=== PATIENT | female | born 1980 | race Hispanic/Latino ===

== ENCOUNTER 2023-09-03 14:24 | Inpatient (IN) | payer SELFPAY ==
--- OUTSIDE RECORDS SUMMARY | 2023-09-03 14:28 | XMS REPORT | Continuity of Care Document ---
:1980 Author Organization [facility] t Address [address] [place] [address] Care Team Providers Name Role Phone Barbie Rollins Primary Care Physician [phone] Sushil Caraballo Attending Clinician Unavailable Problems Condition Condition Condition Status Onset Resolution Last Treating Co mments Source Name Details Category Date Date Treatment Clinician Date Mixed Hyperlipid Problem Active Commo n hyperlipid emia, Spirit emia mixed - [facility] Gastro-eso Gastro-eso Problem Active C ommon phageal phageal Spirit reflux reflux - [facility] disease disease [facility] Type II Diabetes Problem Active Common diabetes type 2, Spirit mellitus uncontroll - CH I uncontroll ed [facility] [id number] Generalize Problem Active Com mon d anxiety Spirit disorder - [facility] [id number] Hypertrigl Problem Active Co mmon yceridemia Spirit [facility] Essential Benign Problem Active Common hypertensi essential Spi rit on HTN - [facility] Palpitatio Palpitatio Problem Active C ommon ns ns [facility] [id number] Noncomplia Problem Active Co mmon nce with Spirit dietary - [facility] restrictio [facility] [id number] Non-season Problem Active Com mon al Spirit allergic - [facility] rhinitis, St unspecifie [facility] Allergies, Adverse Reactions, Alerts Allergy Allergy Status Severity Reaction(s) Onset Inactive Treating Comm ents Source Name Type Date Date Clinician Lisinopr Propensi Active 2021-11 il - ty to 12-17 Oral adverse 00:00: reaction 00 to drug Dairy Propensi Active Products ty to 9 (Not adverse 00:00: Checked) reaction 00 to drug lisinopr lisinopr Active Unknown Commo n il [facility] Social History Social Habit Start Date Stop Date Quantity Comments Source History of Tobacco Use Co mmon [facility] Sex Assigned At Com [facility] Smoking Status Start Date Stop Date Source Never Smoker Common [facility] Medications Ordered Filled Start Stop Current Ordering Indication Dosage Frequency Signature Comments Components Source Medication Medication Date Date Medication? Clinician (SIG) Name Name Zoloft 100 Zoloft 100 No 1{table QD Zoloft 100 MG MG 8-20 t} MG 00:00: 00 Pioglitazon Pioglitazon No 1{table QD Pioglitazo e HCl 30 MG e HCl 30 MG 8-20 t} ne HCl 30 00:00: MG 00 GlipiZIDE GlipiZIDE 2019-11 No 1{table BID GlipiZIDE ER 10 MG ER 10 MG 2-14 t_with_ ER 10 MG 00:00: break st} Zoloft Zoloft Yes Sushil 1 tablet Com sun 8 Caraballo Spirit 00:00: - [facility] 00 [facility] Dose No Unknown 9-23 00:00: 00 hydrochloro No 1mg thiazide 25 9-23 mg tablet 00:00: 00 aspirin 81 No 1mg mg 9-22 tablet,nicole 00:00: yed release 00 metformin No 1mg 1,000 mg 9-22 tablet 00:00: 00 gemfibrozil No 1mg 600 mg 9-22 tablet 00:00: 00 metformin No 1mg 1,000 mg 9-21 tablet 00:00: 00 Pantoprazol Pantoprazol Yes Sushil TAKE ONE Common e Sodium e Sodium Caraballo TABLET BY S pirit MOUTH - CHI DAILY [facility] Metformin Metformin Yes Sushil 1 tablet Common HCl HCl Caraballo with meals [facility] GlipiZIDE GlipiZIDE Yes Sushil 1 tablet Common Caraballo [facility] Gemfibrozil Gemfibrozil Yes Sushil 1 tablet Common Caraballo [facility] Coreg Coreg Yes Sushil 1 tab Common Caraballo [facility] Amlodipine Amlodipine Yes Sushil TAKE ONE Common Besylate Besylate Caraballo TABLET BY S pirit MOUTH - CHI DAILY [facility] Victoza Victoza Yes Sushil as Common Caraballo directed [facility] Losartan Losartan Yes Sushil 1 tablet C ommon Potassium Potassium Caraballo Spir it [facility] Lovastatin Lovastatin Yes Sushil 1 tablet Common Caraballo with the Spirit evening - CHI meal [facility] Aspir-81 Aspir-81 Yes Sushil 1 tablet C ommon Caraballo [facility] metFORMIN metFORMIN No 1{table BID metFORMIN HCl 1000 MG HCl 1000 MG t_with_ HCl 1000 meals} MG Coreg 12.5 Coreg 12.5 No Coreg 12.5 MG MG MG Losartan Losartan No 1{table QD Losartan Potassium Potassium t} Potassium 25 MG 25 MG 25 MG metFORMIN metFORMIN No 1{table BID metFORMIN HCl 1000 MG HCl 1000 MG t_with_ HCl 1000 meals} MG Victoza 18 Victoza 18 No Victoza 18 MG/3ML MG/3ML MG/3ML Gemfibrozil Gemfibrozil No 1{table BID Gemfibrozi 600 MG 600 MG t} l 600 MG Pantoprazol Pantoprazol No Pantoprazo e Sodium 40 e Sodium 40 le Sodium 40 amLODIPine amLODIPine No QD amLODIPine Besylate 10 Besylate 10 Besylate 10 Losartan Losartan No 1{table QD Losartan Potassium Potassium t} Potassium 25 MG 25 MG 25 MG Lovastatin Lovastatin No QD Lovastatin 40 MG 40 MG 40 MG Coreg 12.5 Coreg 12.5 No BID Coreg 12.5 MG MG MG Aspir-81 81 Aspir-81 81 No 1{table QD Aspir-81 MG MG t} 81 MG Zoloft 50 Zoloft 50 No 1{table QD Zoloft 50 MG MG t} MG Pantoprazol Pantoprazol No Pantoprazo e Sodium 40 e Sodium 40 le Sodium MG MG 40 MG glipiZIDE glipiZIDE No 1{table BID glipiZIDE ER 10 MG ER 10 MG t_with_ ER [address]} Gemfibrozil Gemfibrozil No Gemfibrozi 600 MG 600 MG l 600 MG Gemfibrozil Gemfibrozil No 1{table BID Gemfibrozi 600 MG 600 MG t} l 600 MG Losartan Losartan No 1{table QD Losartan Potassium Potassium t} Potassium 25 MG 25 MG 25 MG Zoloft 50 Zoloft 50 No QD Zoloft 50 MG MG MG Pantoprazol Pantoprazol No Pantoprazo e Sodium 40 e Sodium 40 le Sodium MG MG 40 MG Lovastatin Lovastatin No QD Lovastatin 40 MG 40 MG 40 MG Coreg 12.5 Coreg 12.5 No BID Coreg 12.5 MG MG MG Amlodipine Amlodipine No QD Amlodipine Besylate 10 Besylate 10 Besylate 10 Aspir-81 81 Aspir-81 81 No 1{table QD Aspir-81 MG MG t} 81 MG Metformin Metformin No 1{table BID Metformin HCl 1000 MG HCl 1000 MG t_with_ HCl 1000 meals} MG Pantoprazol Pantoprazol No Pantoprazo e Sodium 40 e Sodium 40 le Sodium 40 Losartan Losartan No 1{table QD Losartan Potassium Potassium t} Potassium 25 MG 25 MG 25 MG Victoza 18 Victoza 18 No Victoza 18 MG/3ML MG/3ML MG/3ML Zoloft 50 Zoloft 50 No 1{table QD Zoloft 50 MG MG t} MG GlipiZIDE GlipiZIDE No 1{table BID GlipiZIDE ER 10 MG ER 10 MG t_with_ ER [address]} Aspir-81 81 Aspir-81 81 No 1{table QD Aspir-81 MG MG t} 81 MG Coreg 12.5 Coreg 12.5 No Coreg 12.5 MG MG MG Pantoprazol Pantoprazol No Pantoprazo e Sodium 40 e Sodium 40 le Sodium MG MG 40 MG Lovastatin Lovastatin No QD Lovastatin 40 MG 40 MG 40 MG Zoloft 50 Zoloft 50 No 1{table QD Zoloft 50 MG MG t} MG Losartan Losartan No 1{table QD Losartan Potassium Potassium t} Potassium 25 MG 25 MG 25 MG Metformin Metformin No 1{table BID Metformin HCl 1000 MG HCl 1000 MG t_with_ HCl 1000 meals} MG Zoloft 50 Zoloft 50 No QD Zoloft 50 MG MG MG Gemfibrozil Gemfibrozil No Gemfibrozi 600 MG 600 MG l 600 MG Gemfibrozil Gemfibrozil No 1{table BID Gemfibrozi 600 MG 600 MG t} l 600 MG Losartan Losartan No 1{table QD Losartan Potassium Potassium t} Potassium 25 MG 25 MG 25 MG Coreg 12.5 Coreg 12.5 No BID Coreg 12.5 MG MG MG Metformin Metformin No 1{table BID Metformin HCl 1000 MG HCl 1000 MG t_with_ HCl 1000 meals} MG Victoza 18 Victoza 18 No Victoza 18 MG/3ML MG/3ML MG/3ML Amlodipine Amlodipine No QD Amlodipine Besylate 10 Besylate 10 Besylate 10 Pantoprazol Pantoprazol No Pantoprazo e Sodium 40 e Sodium 40 le Sodium 40 Vital Signs Vital Name Observation Time Observation Value Comments Source height 2021-07-08 09:00:00 60 [in_i] [facility] weight 2021-07-08 09:00:00 189 [lb_av] [facility] temperature 2021-07-08 09:00:00 98 [degF] [facility] bmi 2021-07-08 09:00:00 36.91 kg/m2 [facility] blood pressure 2021-07-08 09:00:00 130 mm[Hg] Common Spirit - systolic [facility] blood pressure 2021-07-08 09:00:00 74 mm[Hg] Common Spirit - diastolic [facility] height 2021-02-09 13:00:00 60 [in_i] Common [facility] weight 2021-02-09 13:00:00 185 [lb_av] [facility] temperature 2021-02-09 13:00:00 97.5 [degF] [facility] bmi 2021-02-09 13:00:00 36.13 kg/m2 [facility] blood pressure 2021-02-09 13:00:00 132 mm[Hg] Common Spirit - systolic [facility] blood pressure 2021-02-09 13:00:00 70 mm[Hg] Common Spirit - diastolic [facility] height 2020-11-01 11:30:00 60 [in_i] [facility] weight 2020-11-01 11:30:00 180 [lb_av] [facility] temperature 2020-11-01 11:30:00 98 [degF] [facility] bmi 2020-11-01 11:30:00 35.15 kg/m2 [facility] S pirit - [facility] blood pressure 2020-11-01 11:30:00 135 mm[Hg] Common Spirit - systolic [facility] blood pressure 2020-11-01 11:30:00 74 mm[Hg] Common Spirit - diastolic [facility] Heart Rate 2022-10-19 18:01:00 115.00 /min Respiratory Rate 2022-10-19 18:01:00 BP Systolic 2022-10-19 18:01:00 157 mm[Hg] BP Diastolic 2022-10-19 18:01:00 98 mm[Hg] Weight Measured 2022-10-19 18:01:00 156.00 pounds Height Measured 2022-10-19 18:01:00 58.00 inches Body Temperature 2022-10-19 18:01:00 98.63 degrees BP Systolic 2022-10-19 17:42:00 157 mm[Hg] BP Diastolic 2022-10-19 17:42:00 98 mm[Hg] Weight Measured 2022-10-19 17:42:00 156.00 pounds Height Measured 2022-10-19 17:42:00 58.00 inches Body Temperature 2022-10-19 17:42:00 98.63 degrees Heart Rate 2022-10-19 17:42:00 115.00 /min Respiratory Rate 2022-10-19 17:42:00 BP Systolic 2016-09-19 14:54:00 121 mm[Hg] BP Diastolic 2016-09-19 14:54:00 81 mm[Hg] Weight Measured 2016-09-19 14:54:00 166.80 pounds Height Measured 2016-09-19 14:54:00 58.00 inches Body Temperature 2016-09-19 14:54:00 98.30 degrees Heart Rate 2016-09-19 14:54:00 99.00 /min Respiratory Rate 2016-09-19 14:54:00 BP Systolic 2016-08-10 10:11:00 146 mm[Hg] BP Diastolic 2016-08-10 10:11:00 94 mm[Hg] Weight Measured 2016-08-10 10:11:00 166.40 pounds Height Measured 2016-08-10 10:11:00 58.00 inches Body Temperature 2016-08-10 10:11:00 97.70 degrees Heart Rate 2016-08-10 10:11:00 98.00 /min Respiratory Rate 2016-08-10 10:11:00 18.00 /min Procedures This patient has no known procedures. Plan of Care Planned Activity Planned Date Details Comments Source Goal Plan of Care Note [code = 71748-3] Goal Plan of Care Note [code = 02798-7] Goal Plan of Care Note [code = 87200-9] Goal Plan of Care Note [code = 16984-3] Goal Plan of Care Note [code = 37513-6] Goal Plan of Care Note [code = 04996-4] Goal Plan of Care Note [code = 28748-6] Goal Plan of Care Note [code = 58922-8] Goal Plan of Care Note [code = 50873-7] Encounters Start End Encounter Admission Attending Care Care Encounter Source Date/Time Date/Time Type Type Clinicians Facility Department ID 2022-05-31 Outpatient Caraballo, STLMLC [facility] [id number] Common 13:04:00 Sushil [facility] 2021-12-14 Outpatient Caraballo, STLMLC [facility] [id number] Common 12:43:24 Sushil 26416 [facility] 2021-12-14 [facility] [id number] Common 12:13:00 Sushil [id number] [facility] 2021-12-14 [facility] [id number] Common 12:12:49 Sushil 53214 [facility] 2021-12-14 [facility] [id number] Common 12:10:48 Sushil [id number] [facility] 2021-12-14 Outpatient Caraballo, STLMLC STLC [id number] Common 12:06:47 Sushil 72780 [facility] 2021-12-14 Outpatient Caraballo, STLMLC STLMLC Common 11:44:19 Sushil 95430 [facility] 2021-12-14 Outpatient Caraballo, STLMLC STLMLC Common 11:35:26 [facility] [address] [facility] 2023-08-22 2023-08-22 Outpatient SFA SFA [id number] Qamar 09:22:37 09:22:37 1004 [facility] 2023-08-15 2023-08-15 Outpatient SFA SFA [id number] Qamar 10:39:15 10:39:15 0927 [facility] 2022-10-20 2022-10-20 Outpatient SFA SFA [id number] Qamar 07:57:32 07:57:32 1202 [facility] 2022-10-19 2022-10-19 Outpatient SFA SFA [id number] Qamar 17:38:07 17:38:07 1201 [facility] 2022-10-19 2022-10-19 Outpatient [id number] 00:00:00 00:00:00 Visit [id number] [id number] 2021-07-08 OFFICE STLMLC STLMLC [id number] Co mmon 00:00:00 00:00:00 VISIT EST Spir it PT LEVEL 3 [facility] 2021-02-09 2021-02-09 OFFICE STLMLC STLMLC [id number] Co mmon 00:00:00 00:00:00 VISIT EST Spir it PT LEVEL 3 [facility] 2020-11-01 2020-11-01 OFFICE STLMLC STLMLC [id number] Co mmon 00:00:00 00:00:00 VISIT EST Spir it PT LEVEL 3 [facility] 2020-07-29 2020-07-29 [id number] Common 08:40:00 08:40:[address] [facility] 2020-06-28 2020-06-28 [facility] [id number] Common 15:45:00 15:45:[address] Drive [facility] 2020-04-27 2020-04-27 [facility] [id number] Common 09:45:00 09:45:[address] Drive [facility] 2020-04-16 2020-04-16 [facility] [id number] Common 16:39:00 16:39:[address] [facility] [address] Spir it Road [facility] 2019-12-15 2019-12-15 [facility] [id number] Common 10:00:00 10:00:[address] Drive [facility] 2019-11-21 2019-11-21 [facility] [id number] Common 09:14:00 09:14:[address] [facility] 2019-09-09 2019-09-09 [facility] [id number] Common 10:30:00 10:30:[address] [facility] 2019-06-09 2019-06-09 [facility] [id number] Common 15:00:00 15:00:[address] Drive [facility] 2019-02-26 2019-02-26 [facility] [id number] Common 15:14:00 15:14:[address] Drive [facility] 2019-02-26 2019-02-26 [facility] [id number] Common 11:30:00 11:30:[address] [facility] 2018-12-20 2018-12-20 [facility] [id number] Common 13:05:00 13:05:[address] Drive [facility] 2018-12-05 2018-12-05 [facility] [id number] Common 14:06:00 14:06:[address] Drive [facility] 2018-11-26 2018-11-26 [facility] [id number] Common 12:02:00 12:02:[address] Drive [facility] 2018-11-25 2018-11-25 [facility] [id number] Common 13:45:00 13:45:[address] Drive [facility] 2018-08-22 2018-08-22 [facility] [id number] Common 14:45:00 14:45:[address] Drive [facility] 2018-04-22 2018-04-22 [facility] [id number] Common 16:00:00 16:00:[address] Sp[address] Drive [facility] Results Test Description Test Time Test Comments Results Result Comments Source GC AND CHLAMYDIA AMPLIFIED, THINPREP 2016-09-22 00:00:00 Test Item Value Reference Range Interpretation Comme nts GONORRHEA, TMA (test code = 16038) NEGATIVE CHLAMYDIA, TMA (test code = 81195) NEGATIVE GC AND CHLAMYDIA AMPLIFIED, [id number] 00:00:00 Test Item Value Reference Range Interpretation Comments GONORRHEA, TMA (test code = 87333) NEGATIVE CHLAMYDIA, TMA (test code = 83033) NEGATIVE PAP TEST, THINPREP, [id number] 00:00:00 Test Item Value Reference Range Interpretation Comments SOURCE: (test code = Cervical/Endocervical 8001) SLIDES: (test code = 1 8011) LMP: (test code = 08/25/2016 8021) SPECIMEN ADEQUACY: (NOTE) (test code = 95259) INTERPRETATION: (test NO EPITHELIAL code = 20780) ABNORMALITY SEE BELOW [employer]BLER: MARGARITA ACEVEDO(ASCP) (test code = 8101) LOCATION: (test code (NOTE) = 90626) CPT: (test code = (NOTE) 8140) PAP TEST, THINPREP, [id number] 00:00:00 Test Item Value Reference Range Interpretation Comments SOURCE: (test code = Cervical/Endocervical 8001) SLIDES: (test code = 1 8011) LMP: (test code = 08/25/2016 8021) SPECIMEN ADEQUACY: (NOTE) (test code = 37700) INTERPRETATION: (test NO EPITHELIAL code = 47210) ABNORMALITY SEE BELOW [employer] ASSEMBLER: MARGARITA ACEVEDO(ASCP) (test code = 8101) LOCATION: (test code (NOTE) = 20680) CPT: (test code = (NOTE) 8140) HPV HIGH RISK WITH GENOTYPE, [id number] 00:00:00 Test Item Value Reference Range Interpretation Comments HPV HIGH RISK INTERP (test code = NEGATIVE 53899) HPV 16 (test code = 21450) NEGATIVE HPV 18 (test code = 09980) NEGATIVE HPV, HR, OTHER GENOTYPES (test code NEGATIVE = 90708) HPV HIGH RISK WITH GENOTYPE, [id number] 00:00:00 Test Item Value Reference Range Interpretation Comments HPV HIGH RISK INTERP (test code = NEGATIVE 07525) HPV 16 (test code = 21225) NEGATIVE HPV 18 (test code = 70709) NEGATIVE HPV, HR, OTHER GENOTYPES (test code NEGATIVE = 12234) COMPREHENSIVE METABOLIC [id number] 00:00:00 Test Item Value Reference Range Interpretation Comments GLUCOSE (test code = 2217) 337 MG/DL BUN (test code = 2208) 9 MG/DL CREATININE (test code = 2214) 0.45 MG/DL eGFR AMER. (test code 147 ML/MIN/1.73 = 40636) eGFR NON- AMER. (test 127 ML/MIN/1.73 code = 02176) CALC BUN/CREAT (test code = 20 RATIO 5) SODIUM (test code = 2231) 135 MEQ/L POTASSIUM (test code = 2228) 4.4 MEQ/L CHLORIDE (test code = 2215) 97 MEQ/L CARBON DIOXIDE (test code = 24 MEQ/L 2205) CALCIUM (test code = 2209) 9.5 MG/DL PROTEIN, TOTAL (test code = 7.0 G/DL 2228) ALBUMIN (test code = 2201) 4.5 G/DL CALC GLOBULIN (test code = 2.5 G/DL 2240) CALC A/G RATIO (test code = 1.8 RATIO 2234) BILIRUBIN, TOTAL (test code = 0.2 MG/DL 2206) ALKALINE PHOSPHATASE (test 113 U/L code = 2204) AST (test code = 2218) 23 U/L ALT (test code = 2219) 36 U/L COMPREHENSIVE METABOLIC [id number] 00:00:00 Test Item Value Reference Range Interpretation Comments GLUCOSE (test code = 2217) 337 MG/DL BUN (test code = 2208) 9 MG/DL CREATININE (test code = 2214) 0.45 MG/DL eGFR AMER. (test code 147 ML/MIN/1.73 = 43214) eGFR NON- AMER. (test 127 ML/MIN/1.73 code = 51995) CALC BUN/CREAT (test code = 20 RATIO 2235) SODIUM (test code = 2231) 135 MEQ/L POTASSIUM (test code = 2228) 4.4 MEQ/L CHLORIDE (test code = 2215) 97 MEQ/L CARBON DIOXIDE (test code = 24 MEQ/L 2205) CALCIUM (test code = 2209) 9.5 MG/DL PROTEIN, TOTAL (test code = 7.0 G/DL 2228) ALBUMIN (test code = 2201) 4.5 G/DL CALC GLOBULIN (test code = 2.5 G/DL 2240) CALC A/G RATIO (test code = 1.8 RATIO 2234) BILIRUBIN, TOTAL (test code = 0.2 MG/DL 2206) ALKALINE PHOSPHATASE (test 113 U/L code = 2204) AST (test code = 2218) 23 U/L ALT (test code = 2219) 36 U/L LIPID [id number] 00:00:00 Test Item Value Reference Range Interpretation Comments CHOLESTEROL (test code = 2210) 283 MG/DL TRIGLYCERIDES (test code = 2232) 1650 MG/DL HDL CHOLESTEROL (test code = 2220) 31 MG/DL CALC LDL CHOL (test code = 2237) NOTE MG/DL LIPID [id number] 00:00:00 Test Item Value Reference Range Interpretation Comments CHOLESTEROL (test code = 2210) 283 MG/DL TRIGLYCERIDES (test code = 2232) 1650 MG/DL HDL CHOLESTEROL (test code = 2220) 31 MG/DL CALC LDL CHOL (test code = 2237) NOTE MG/DL CBC W/AUTO [id number] 00:00:00 Test Item Value Reference Range Interpretation Comments WBC (test code = 1001) 7.3 K/UL RBC (test code = 1002) 4.85 M/UL HEMOGLOBIN (test code = 1003) 13.3 G/DL HEMATOCRIT (test code = 1004) 40.0 % MCV (test code = 1005) 82.5 fL MCH (test code = 1006) 27.4 PG MCHC (test code = 1007) 33.3 G/DL RDW (test code = 1038) 13.0 % NEUTROPHILS (test code = 1008) 59.9 % LYMPHOCYTES (test code = 1010) 30.4 % MONOCYTES (test code = 1011) 8.2 % EOSINOPHILS (test code = 1012) 0.8 % BASOPHILS (test code = 1013) 0.7 % PLATELET COUNT (test code = 1015) 315 K/UL CBC W/AUTO [id number] 00:00:00 Test Item Value Reference Range Interpretation Comments WBC (test code = 1001) 7.3 K/UL RBC (test code = 1002) 4.85 M/UL HEMOGLOBIN (test code = 1003) 13.3 G/DL HEMATOCRIT (test code = 1004) 40.0 % MCV (test code = 1005) 82.5 fL MCH (test code = 1006) 27.4 PG MCHC (test code = 1007) 33.3 G/DL RDW (test code = 1038) 13.0 % NEUTROPHILS (test code = 1008) 59.9 % LYMPHOCYTES (test code = 1010) 30.4 % MONOCYTES (test code = 1011) 8.2 % EOSINOPHILS (test code = 1012) 0.8 % BASOPHILS (test code = 1013) 0.7 % PLATELET COUNT (test code = 1015) 315 K/UL CBC W/AUTO [id number] 00:00:00 Test Item Value Reference Range Interpretation Comments WBC (test code = 1001) 7.3 K/UL RBC (test code = 1002) 4.85 M/UL HEMOGLOBIN (test code = 1003) 13.3 G/DL HEMATOCRIT (test code = 1004) 40.0 % MCV (test code = 1005) 82.5 fL MCH (test code = 1006) 27.4 PG MCHC (test code = 1007) 33.3 G/DL RDW (test code = 1038) 13.0 % NEUTROPHILS (test code = 1008) 59.9 % LYMPHOCYTES (test code = 1010) 30.4 % MONOCYTES (test code = 1011) 8.2 % EOSINOPHILS (test code = 1012) 0.8 % BASOPHILS (test code = 1013) 0.7 % PLATELET COUNT (test code = 1015) 315 K/UL HEMOGLOBIN [id number] 00:00:00 Test Item Value Reference Range Interpretation Comments HEMOGLOBIN A1c (test code = 74700) 10.7 % HEMOGLOBIN [id number] 00:00:00 Test Item Value Reference Range Interpretation Comments HEMOGLOBIN A1c (test code = 91503) 10.7 % HEMOGLOBIN [id number] 00:00:00 Test Item Value Reference Range Interpretation Comments HEMOGLOBIN A1c (test code = 29243) 10.7 % [id number] 00:00:00 Test Item Value Reference Range Interpretation Comments TSH (test code = 2821) 1.4 UIU/ML [id number] 00:00:00 Test Item Value Reference Range Interpretation Comments TSH (test code = 2821) 1.4 UIU/ML [id number] 00:00:00 Test Item Value Reference Range Interpretation Comments TSH (test code = 2821) 1.4 UIU/ML
--- NOTE | 2023-09-03 14:54 | RAD REPORT ---
EXAM DESCRIPTION: CT - Ct Stroke Brain Wo Cont - 09/03/2023 2:44 pm CLINICAL HISTORY: STROKE ALERT Headache, drowsiness, CVA COMPARISON: HEAD BRAIN W O CONTRAST dated 06/09/2014; SOFT TISSUE NECK W CONTRAST dated 05/10/2015 TECHNIQUE: All CT scans are performed using dose optimization technique as appropriate and may inclu de automated exposure control or mA/KV adjustment according to patient size. FINDINGS: No intracranial hemorrhage, hydrocephalus or extra-axial fluid collection.Mild areas of di minished density periventricular region bilaterally favored to represent sequela of prior ischemic in sult.No areas of brain edema or evidence of midline shift. The paranasal sinuses and mastoids are clear. The calvarium is intact. IMPRESSION: No acute intracranial abnormality. The findings were discussed with Inessa Duran in the ER on 09/03/2023 at 2:50 p.m. by telephone.
[2023-09-03] MEDS ORDERED: ASPIRIN 81 MG CHEWABLE TABLET ONE (15:12)
[2023-09-03 15:38] LABS: Absolute Lymphocytes (CBC) 1.9 K/uL (0.7-4.9); Hematocrit 37.9 % (36.0-45.0); Lymphocytes % 20.2 % (15.3-44.8); MCV 81.8 fL (80-100); MPV 7.2 fL (7.6-11.3); Platelets 343 thou/uL (152-406); RBC Red Blood Cell Count 4.64 M/uL (3.86-4.86)
[2023-09-03 15:40] LABS: Protime INR 0.91
--- NOTE | 2023-09-03 15:50 | RAD REPORT ---
EXAM DESCRIPTION: MRI - Brain Wo Cont - 09/03/2023 3:29 pm CLINICAL HISTORY: SLURRED SPEECH Headache, drowsiness, CVA symptomology COMPARISON: Ct Stroke Brain Wo Cont dated 09/03/2023 TECHNIQUE: Multi-sequence, multiplanar MR imaging of the brain was performed without contrast. FINDINGS: No intracranial hemorrhage, hydrocephalus or extra-axial fluid collections. No edema or sh ift of midline structures. No findings to suspect brain mass.T2 and FLAIR hyperintense lesions are se en in the periventricular white matter bilaterally, larger on the right. The right-sided ovoid lesion measures 16 x 9 mm and appears perpendicular to the long axis of the ventricle and involves the prec entral gyrus. This lesion demonstrates significant elevated DWI signal and reduced ADC map signal com patible with acute ischemia/CVA. Smaller similar lesion left periventricular white matter measures 8 mm and demonstrates elevated DWI signal without ADC map correlate. Small area of T2 hyperintensity is seen superior left cerebellar peduncle measuring 11 mm. Midline structures are normally formed. Mastoid air cells and paranasal sinuses are clear. IMPRESSION: Suspected nonhemorrhagic acute CVA seen right medial prefrontal gyrus measuring 16 x 9 m m. Additional areas of signal abnormality described above may represent subacute to chronic areas ischem ia.
[2023-09-03 15:56] LABS: Potassium 3.9 mEq/L (3.5-5.1)
[2023-09-03 16:00] LABS: Troponin High Sensitivity 87.3 pg/mL (<58.9)
--- NOTE | 2023-09-03 16:22 | RAD REPORT ---
EXAM DESCRIPTION: RAD - Chest Single View - 09/03/2023 4:07 pm CLINICAL HISTORY: slurred speech Chest pain. COMPARISON: Chest Single View dated 11/14/2017; Chest Single View dated 02/24/2017; Chest Single View dated 02/05/2017; Chest Single View dated 01/28/2017 FINDINGS: Portable technique limits examination quality. The lungs are grossly clear. The heart is normal in size. No displaced fractures. IMPRESSION: No acute intrathoracic process suspected.
--- NOTE | 2023-09-03 16:39 | RAD REPORT ---
EXAM DESCRIPTION: CT - Head angio - 09/03/2023 4:30 pm CLINICAL HISTORY: SLURRED SPEECH Headache, drowsiness, CVA COMPARISON: Ct Stroke Brain Wo Cont dated 09/03/2023; HEAD BRAIN W O CONTRAST dated 06/09/2014 TECHNIQUE: CT angiography of the head was performed with MIPs. All CT scans are performed using dose optimization technique as appropriate and may include automated exposure control or mA/KV adjustment according to patient size. FINDINGS: No evidence of large vessel occlusion. No evidence of aneurysm is detected. No flow-limiti ng stenosis or vascular malformation identified. Antegrade flow is seen in the vertebral arteries. The vertebral arteries are codominant. The visualized dural venous sinuses are patent. IMPRESSION: No significant flow abnormality is detected.
--- NOTE | 2023-09-03 16:41 | RAD REPORT ---
EXAM DESCRIPTION: CT - Neck Angio - 09/03/2023 4:31 pm CLINICAL HISTORY: slurred speech Headache, drowsiness, CVA symptomology COMPARISON: SOFT TISSUE NECK W CONTRAST dated 05/10/2015 TECHNIQUE: CT angiography of the neck vessels was performed with MIPs. All CT scans are performed using dose optimization technique as appropriate and may include automated exposure control or mA/KV adjustment according to patient size. FINDINGS: A left aortic arch is identified with normal three vessel configuration of the great vesse ls. No significant flow abnormality is seen of the common carotid bilaterally. No significant stenosis is identified involving the cervical segments of both internal carotid arteri es. Normal flow is seen within both vertebral arteries. IMPRESSION: No significant flow abnormality of the neck vessels is identified. NASCET criteria used. Mild 0-49% stenosis Moderate 50-69% stenosis Severe 70-99% stenosis
--- NOTE | 2023-09-03 16:48 | ER ---
Nurse's Notes [facility] Name: Sakshi Jarvis Age: 43 yrs Sex: Female : 1980 Arrival Date: 09/03/2023 Time: 14:24 Bed 8 Private MD: Diagnosis: Acute CVA Presentation: 09/03 14:34 Chief complaint: Patient states: Yesterday at approximately 0800, I had some slurred kd3 speech. I thought I had just bitten my tongue but it isn't going away. My tongue still feels swollen today. Pt is noted to have no other deficits in triage. Pt is equal in strength bilaterally. Pt is alert and oriented, denies a headache. Coronavirus screen: Vaccine status: Patient reports receiving the 2nd dose of the covid vaccine. Ebola Screen: No symptoms or risks identified at this time. 14:34 Method Of Arrival: Ambulatory kd3 14:37 Initial Sepsis Screen: Does the patient meet any 2 criteria? No. Patient's initial kd3 sepsis screen is negative. Does the patient have a suspected source of infection? No. Patient's initial sepsis screen is negative. Risk Assessment: Do you want to hurt yourself or someone else? Patient reports no desire to harm self or others. Onset of symptoms was September 03, 2023. 14:37 Acuity: VAISHALI 3 kd3 Triage Assessment: 14:37 General: Appears uncomfortable, Behavior is anxious, crying. Pain: Complains of pain in kd3 tongue. 14:37 Neuro: Level of Consciousness is awake, alert, obeys commands, Oriented to person, kd3 place, time, situation. Cardiovascular: Pulses are palpable in right radial artery and left radial artery. Respiratory: Airway is patent Trachea midline Respiratory effort is even, unlabored, Respiratory pattern is regular, symmetrical. Historical: - Allergies: 14:37 Lisinopril; kd3 14:37 PENICILLINS; kd3 - Immunization history:: Adult Immunizations up to date. - Social history:: Smoking status: unknown. Screenin:11 [facility] ED Fall Risk Assessment (Adult) Score/Fall Risk Level 0 - 2 = Low Risk hb Oriented to surroundings, Maintained a safe environment. Abuse screen: Denies threats or abuse. Denies injuries from another. Nutritional screening: No deficits noted. Tuberculosis screening: No symptoms or risk factors identified. 15:50 [place] Swallow Protocol Exclusion Criteria: Exclusion Criteria Result: Proceed Brief hb Cognitive Screen What is your name? Normal, Where are you right now? Normal, What year is it? Normal. Oral Mechanism Examination Facial Symmetry: Normal, Motion: Normal, Lip Closure: Normal, Oral Mechanism Result: Normal. 3 oz Water Swallow Challenge: Pt able to drink all water without stopping, coughing, choking or throat clearing: Yes Result: PASS. Assessment: 15:11 General: Appears in no apparent distress. Behavior is calm, cooperative. Pain: Denies hb pain. Neuro: Level of Consciousness is awake, alert, obeys commands, Oriented to person, place, time, situation, Speech is slurred, Facial droop on left. Cardiovascular: Patient's skin is warm and dry. Respiratory: Respiratory effort is even, unlabored, Respiratory pattern is regular, symmetrical. GI: No signs and/or symptoms were reported involving the gastrointestinal system. : No signs and/or symptoms were reported regarding the genitourinary system. EENT: No signs and/or symptoms were reported regarding the EENT system. Derm: Skin is pink, warm \T\ dry. Musculoskeletal: No signs and/or symptoms reported regarding the musculoskeletal system. 19:10 Reassessment: Patient appears in no apparent distress at this time. Patient and/or jb4 family updated on plan of care and expected duration. Pain level reassessed. Patient is alert, oriented x 3, equal unlabored respirations, skin warm/dry/pink. 19:54 Reassessment: attempted to call report, no answer. jb4 20:26 Reassessment: Patient appears in no apparent distress at this time. Patient and/or jb4 family updated on plan of care and expected duration. Pain level reassessed. Patient is alert, oriented x 3, equal unlabored respirations, skin warm/dry/pink. Vital Signs: 14:34 BP 158 / 93; Pulse 103; Resp 18; Temp 98.2(TE); Pulse Ox 100% on R/A; Weight 71.67 kg; kd3 Height 5 ft. 5 in. ; 15:53 BP 145 / 86; Pulse 97; Resp 18; Pulse Ox 98% on R/A; ld1 16:30 BP 158 / 88; Pulse 101; Resp 18; Pulse Ox 98% on R/A; ld1 17:00 BP 154 / 100; Pulse 98; Resp 16; Pulse Ox 100% on R/A; ld1 17:30 BP 167 / 91; Pulse 97; Resp 20; Pulse Ox 100% on R/A; ld1 18:00 BP 171 / 95; Pulse 98; Resp 14; Pulse Ox 100% on R/A; ld1 18:38 BP 146 / 89; Pulse 94; Resp 19; Pulse Ox 97% on R/A; ld1 19:10 BP 142 / 97; Pulse 97; Resp 16; Pulse Ox 99% on R/A; jb4 20:30 BP 145 / 92; Pulse 96; Resp 20; Pulse Ox 99% on R/A; jb4 14:34 Body Mass Index 26.29 (71.67 kg, 165.1 cm) kd3 NIH Stroke Scale Scores: 15:11 NIHSS Score: 2 hb 16:03 NIHSS Score: 1 kb ED Course: 14:25 Patient arrived in ED. rg4 14:30 Inessa Duran FNP-C [facility]. kb 14:30 Tevin Otto DO is Attending Physician. kb 14:34 Terra Johnson, [place] is Primary Nurse. kd3 14:37 Triage completed. kd3 14:37 Arm band placed on right wrist. kd3 14:46 CT Stroke Brain w/o Contrast In Process Unspecified. EDMS 15:09 Inserted saline lock: 20 gauge in right antecubital area, using aseptic technique. hb Blood collected. 15:10 Basic Metabolic Panel Sent. hb 15:10 CBC with Diff Sent. hb 15:10 High Sensitivity Troponin Sent. hb 15:10 Protime (+inr) Sent. hb 15:10 Ptt, Activated Sent. hb 15:31 MRI - Brain Wo Cont In Process Unspecified. EDMS 16:09 Stroke CXR 1 View In Process Unspecified. EDMS 16:32 CT Head Angio In Process Unspecified. EDMS 16:33 CT Neck Angio In Process Unspecified. EDMS 16:47 Asad Pinzon MD is Hospitalizing Provider. kb 20:31 No provider procedures requiring assistance completed. Patient admitted, IV remains in jb4 place. Administered Medications: 15:10 Drug: Aspirin PO 325 mg PO once Route: PO; hb 16:07 Follow up: Response: No adverse reaction hb 17:05 Drug: Clopidogrel PO 300 mg PO once Route: PO; ld1 Outcome: 16:48 Decision to Hospitalize by Provider. kb 20:31 Admitted to Tele accompanied by tech, via wheelchair, room 406, with chart, jb4 20:31 Condition: stable 20:31 Discharge instructions given to patient, Instructed on the need for admit, Demonstrated understanding of instructions, 20:32 Patient left the ED. jb4 NIH Stroke Scale - NIH Stroke Score Date: 09/03/2023 Time: 15:11 Total Score = 2 10. Dysarthria (speech clarity - read or repeat words) - 1(Mild to Moderate) 11. Extinction and Inattention (visual/tactile/auditory/spatial/personal) - 0(No abnormality) 1a. Level of Consciousness (LOC) - 0(Alert) 1b. Level of Consciousness (LOC) (Month \T\ Age) - 0(Both) 1c. LOC Commands (Open \T\ Closes Eyes/Bobtailer) - 0(Both) 2. Best Gaze (Lateral Gaze Paresis) - 0(Normal) 3. Visual Field Loss - 0(No visual loss) 4. Facial Palsy - 1(Minor Paralysis) 5a. Left Arm: Motor (10-second hold) - 0(No drift) 5b. Right Arm: Motor (10-second hold) - 0(No drift) 6a. Left Leg: Motor (5-second hold - always test supine) - 0(No drift) 6b. Right Leg: Motor (5-second hold - always test supine) - 0(No drift) 7. Limb Ataxia (finger/nose \T\ heel/rascon - test with eyes open) - 0(Absent) 8. Sensory Loss (pinprick arms/legs/face) - 0(Normal) 9. Best Language: Aphasia (description/naming/reading) - 0(No aphasia) Initials: NIH Stroke Scale - NIH Stroke Score Date: 09/03/2023 Time: 16:03 Total Score = 1 10. Dysarthria (speech clarity - read or repeat words) - 0(Normal) 11. Extinction and Inattention (visual/tactile/auditory/spatial/personal) - 0(No abnormality) 1a. Level of Consciousness (LOC) - 0(Alert) 1b. Level of Consciousness (LOC) (Month \T\ Age) - 0(Both) 1c. LOC Commands (Open \T\ Closes Eyes/Bobtailer) - 0(Both) 2. Best Gaze (Lateral Gaze Paresis) - 0(Normal) 3. Visual Field Loss - 0(No visual loss) 4. Facial Palsy - 1(Minor Paralysis) 5a. Left Arm: Motor (10-second hold) - 0(No drift) 5b. Right Arm: Motor (10-second hold) - 0(No drift) 6a. Left Leg: Motor (5-second hold - always test supine) - 0(No drift) 6b. Right Leg: Motor (5-second hold - always test supine) - 0(No drift) 7. Limb Ataxia (finger/nose \T\ heel/rascon - test with eyes open) - 0(Absent) 8. Sensory Loss (pinprick arms/legs/face) - 0(Normal) 9. Best Language: Aphasia (description/naming/reading) - 0(No aphasia) Initials: kb Signatures: Dispatcher [employer] EDMS Inessa Duran, [employer]-C [employer]-Ckb Maxine Miller, RN RN Mayelin Herrera4 Sergio Hurd RN RN jb4 Jazz Otto, RN RN ld1 Terra Johnson RN RN kd3
--- NOTE | 2023-09-03 16:49 | EDPHYS ---
Physician Documentation [facility] Name: Sakshi Jarvis Age: 43 yrs Sex: Female : 1980 Arrival Date: 09/03/2023 Time: 14:24 Bed 8 Private MD: ED Physician Tevin Otto HPI: 09/03 16:31 This 43 yrs old Female presents to ER via Ambulatory with complaints of kb Slurred Speech. 16:31 The patient presents to the emergency department with a speech or higher order brain kb function problem. Onset: The symptoms/episode began/occurred yesterday, at 08:00. Context: occurred at home. Associated signs and symptoms: Pertinent positives: slurred speech, facial droop. Severity of symptoms: At their worst the symptoms were mild in the emergency department the symptoms are unchanged. Patient's baseline: Neuro: alert and fully oriented, Motor: no deficits, Ambulation: walks without assistance, Speech: normal. Current symptoms:. The patient has not experienced similar symptoms in the past. The patient has not recently seen a physician. Historical: - Allergies: 14:37 Lisinopril; kd3 14:37 PENICILLINS; kd3 - Immunization history:: Adult Immunizations up to date. - Social history:: Smoking status: unknown. ROS: 16:30 Constitutional: Negative for fever, chills, and weight loss, kb 16:30 Neuro: Positive for speech changes, 16:30 All other systems are negative, Exam: 16:30 Constitutional: This is a well developed, well nourished patient who is awake, alert, kb and in no acute distress. Head/Face: Normocephalic, atraumatic. ENT: Moist Mucous membranes Cardiovascular: Regular rate Respiratory: Respirations even and unlabored. No increased work of breathing. Talking in full sentences Abdomen/GI: Soft, non-tender. No distention Skin: Warm, dry with normal turgor. Normal color. MS/ Extremity: Pulses equal, no cyanosis. Neurovascular intact. Full, normal range of motion. 16:30 ECG was reviewed by the Attending Physician. 16:30 Neuro: Orientation: is normal, Mentation: is normal, Memory: is normal, Cranial nerves: facial droop noted on left, with forehead spared. Speech is clear and appropriate. Vital Signs: 14:34 BP 158 / 93; Pulse 103; Resp 18; Temp 98.2(TE); Pulse Ox 100% on R/A; Weight 71.67 kg; kd3 Height 5 ft. 5 in. ; 15:53 BP 145 / 86; Pulse 97; Resp 18; Pulse Ox 98% on R/A; ld1 16:30 BP 158 / 88; Pulse 101; Resp 18; Pulse Ox 98% on R/A; ld1 17:00 BP 154 / 100; Pulse 98; Resp 16; Pulse Ox 100% on R/A; ld1 17:30 BP 167 / 91; Pulse 97; Resp 20; Pulse Ox 100% on R/A; ld1 18:00 BP 171 / 95; Pulse 98; Resp 14; Pulse Ox 100% on R/A; ld1 18:38 BP 146 / 89; Pulse 94; Resp 19; Pulse Ox 97% on R/A; ld1 19:10 BP 142 / 97; Pulse 97; Resp 16; Pulse Ox 99% on R/A; jb4 20:30 BP 145 / 92; Pulse 96; Resp 20; Pulse Ox 99% on R/A; jb4 14:34 Body Mass Index 26.29 (71.67 kg, 165.1 cm) kd3 NIH Stroke Scale Scores: 15:11 NIHSS Score: 2 hb 16:03 NIHSS Score: 1 kb MDM: 14:30 Patient medically screened. kb 16:02 Data reviewed: vital signs, nurses notes. Consideration of Admission/Observation kb Patient was admitted/placed on observation. Escalation of care including admission/observation considered. Management of patient was discussed with the following: Policy Intern: Dr Connelly. . Discussion of test interpretation with radiology: I had a discussion with radiology regarding a test interpretation. Discussed CT results with Dr Beltre. 16:31 Counseling: I had a detailed discussion with the patient and/or guardian regarding the kb historical points, exam findings, and any diagnostic results supporting the discharge/admit diagnosis, lab results, radiology results, the need for further work-up and treatment in the hospital. 16:48 Management of patient was discussed with the following: Hospitalist: Hospitalist team, hudson pt accepted for admission under Dr Pinzon. 09/03 14:35 Order name: Basic Metabolic Panel; Complete Time: 16:00 hudson 09/03 14:35 Order name: CBC with Diff; Complete Time: 15:49 kb 09/03 14:35 Order name: High Sensitivity Troponin; Complete Time: 16:00 kb 09/03 14:35 Order name: Protime (+inr); Complete Time: 15:43 kb 09/03 14:35 Order name: Ptt, Activated; Complete Time: 15:43 kb 09/03 18:18 Order name: RPR EDMS 09/03 18:24 Order name: CBC with Automated Diff; Complete Time: 18:29 EDMS 09/03 18:35 Order name: Basic Metabolic Panel EDMS 09/03 18:40 Order name: Protime (+INR); Complete Time: 18:56 EDMS 09/03 18:40 Order name: PTT, Activated Partial Thromb; Complete Time: 18:56 EDMS 09/03 19:03 Order name: Vitamin B12 Level EDMS 09/03 19:08 Order name: Vitamin D, 25 (OH), TOTAL EDMS 09/03 14:35 Order name: CT Stroke Brain w/o Contrast; Complete Time: 14:58 kb 09/03 14:35 Order name: Stroke CXR 1 View; Complete Time: 16:26 kb 09/03 14:36 Order name: MRI - Brain Wo Cont; Complete Time: 15:51 kb 09/03 15:59 Order name: CT Head Angio; Complete Time: 16:48 kb 09/03 15:59 Order name: CT Neck Angio; Complete Time: 16:48 kb 09/03 14:35 Order name: EKG; Complete Time: 14:36 kb 09/03 14:35 Order name: Accucheck; Complete Time: 15:52 kb 09/03 14:35 Order name: Cardiac monitoring; Complete Time: 15:10 kb 09/03 14:35 Order name: EKG - Nurse/Tech; Complete Time: 16:02 kb 09/03 14:35 Order name: IV Saline Lock; Complete Time: 15:10 kb 09/03 14:35 Order name: Labs collected and sent; Complete Time: 15:10 kb 09/03 14:35 Order name: NPO; Complete Time: 15:10 kb 09/03 14:35 Order name: O2 Per Protocol; Complete Time: 15:10 kb 09/03 14:35 Order name: O2 Sat Monitoring; Complete Time: 15:10 kb 09/03 14:35 Order name: Stroke Swallow Screen; Complete Time: 15:53 kb EC:30 Rate is 95 beats/min. Rhythm is regular. QRS [place] is Normal. CA interval is normal at kb 150 msec. QRS interval is normal at 72 msec. QT interval is normal at 437 msec. Administered Medications: 15:10 Drug: Aspirin PO 325 mg PO once Route: PO; hb 16:07 Follow up: Response: No adverse reaction hb 17:05 Drug: Clopidogrel PO 300 mg PO once Route: PO; ld1 Disposition: 16:22 I was immediately available on-site in the Emergency Department for consultation in the ms3 care of the patient. Disposition Summary: 09/03/23 16:48 Hospitalization Ordered Notes: Hospitalization Status: Inpatient Admission kb Provider: Asad Pinzon Location: Telemetry/MedSurg (Inpatient) kb Condition: Stable kb Problem: new kb Symptoms: are unchanged kb Bed/Room Type: Standard Room Assignment: 406(09/03/23 18:59) Diagnosis - Acute CVA kb Forms: - Medication Reconciliation Form kb - SBAR form kb - Leadership Thank You Letter NIH Stroke Scale - NIH Stroke Score Date: 09/03/2023 Time: 15:11 Total Score = 2 10. Dysarthria (speech clarity - read or repeat words) - 1(Mild to Moderate) 11. Extinction and Inattention (visual/tactile/auditory/spatial/personal) - 0(No abnormality) 1a. Level of Consciousness (LOC) - 0(Alert) 1b. Level of Consciousness (LOC) (Month \T\ Age) - 0(Both) 1c. LOC Commands (Open \T\ Closes Eyes/Diesel Engine Assembler) - 0(Both) 2. Best Gaze (Lateral Gaze Paresis) - 0(Normal) 3. Visual Field Loss - 0(No visual loss) 4. Facial Palsy - 1(Minor Paralysis) 5a. Left Arm: Motor (10-second hold) - 0(No drift) 5b. Right Arm: Motor (10-second hold) - 0(No drift) 6a. Left Leg: Motor (5-second hold - always test supine) - 0(No drift) 6b. Right Leg: Motor (5-second hold - always test supine) - 0(No drift) 7. Limb Ataxia (finger/nose \T\ heel/rascon - test with eyes open) - 0(Absent) 8. Sensory Loss (pinprick arms/legs/face) - 0(Normal) 9. Best Language: Aphasia (description/naming/reading) - 0(No aphasia) Initials: NIH Stroke Scale - NIH Stroke Score Date: 09/03/2023 Time: 16:03 Total Score = 1 10. Dysarthria (speech clarity - read or repeat words) - 0(Normal) 11. Extinction and Inattention (visual/tactile/auditory/spatial/personal) - 0(No abnormality) 1a. Level of Consciousness (LOC) - 0(Alert) 1b. Level of Consciousness (LOC) (Month \T\ Age) - 0(Both) 1c. LOC Commands (Open \T\ Closes Eyes/Diesel Engine Assembler) - 0(Both) 2. Best Gaze (Lateral Gaze Paresis) - 0(Normal) 3. Visual Field Loss - 0(No visual loss) 4. Facial Palsy - 1(Minor Paralysis) 5a. Left Arm: Motor (10-second hold) - 0(No drift) 5b. Right Arm: Motor (10-second hold) - 0(No drift) 6a. Left Leg: Motor (5-second hold - always test supine) - 0(No drift) 6b. Right Leg: Motor (5-second hold - always test supine) - 0(No drift) 7. Limb Ataxia (finger/nose \T\ heel/rascon - test with eyes open) - 0(Absent) 8. Sensory Loss (pinprick arms/legs/face) - 0(Normal) 9. Best Language: Aphasia (description/naming/reading) - 0(No aphasia) Initials: kb Signatures: Dispatcher [employer] Inessa Brown, CAM[employer]A PERSON-C CAMERA PERSON-CkAdrianna Maldonado, RN RN Maxine Miller RN RN Tevin Otto DO DO ms3 Jazz Otto RN RN ld1 Terra Johnson, RN RN kd3 Corrections: (The following items were deleted from the chart) 18:59 16:48 kb
[2023-09-03] MEDS ORDERED: CLOPIDOGREL 75 MG TABLET ONE (17:15)
[2023-09-03] MEDS ORDERED: ALBUTEROL 2.5 MG/3 ML NEB SOL NEB PRN (17:27)
[2023-09-03] MEDS ORDERED: ONDANSETRON 4 MG/2 ML VIAL IV PRN (17:27)
[2023-09-03] MEDS: INSULIN REGULAR (HUMAN) 100 UNIT/ML SQ SCH (18:00)
--- NOTE | 2023-09-03 18:04 | P.HP ---
Certification for Inpatient With expected LOS: <2 Midnights Practitioner: I am a practitioner with admitting privileges, knowledge of patient current condition, hospital course, and medical plan of care. Services: Services provided to patient in accordance with Admission requirements found in Title 42 Section 412.3 of the Code of Federal Regulations Patient History Date of Service: 09/03/23 Primary Care Provider: Asad Saldivar Reason for admission: Acute CVA History of Present Illness: This is a 43-year-old female with a history of hypertension, diabetes, hyperlipidemia and GERD. Patient presented to the emergency room via ambulatory donte with the complaints of slurred speech. Patient reports the symptoms started yesterday 8:00 in the morning, at home. Associated symptoms are slurred speech, facial droop. Patient not drooling while drinking water. She also noted slurred speech. Patient is alert and oriented, no motor deficits, patient walk without assistance. Patient denies history of any similar episodes in the past. Patient denies chest pain palpitation, fever chills or weight loss. ED course vital signs 158/93, pulse 103, respiration 18, pulse ox 100% on room air, heart rate is regular, QRS is normal, [place] interval is normal QRS interval is normal QT interval is at 437msec. Patient's NIHss score 1. Aspirin [address] x[address]. [address] stroke brain without contrast shows suspected nonhemorrhagic acute CVA on the right medial prefrontal gyrus measuring 16 x 9 cm. Additional areas of signal abnormality described above may represent a subacute to chronic areas of ischemia. Allergies Penicillins Allergy (Verified 02/05/17 23:14) Hives/Rash piperacillin sodium [From Zosyn] Allergy (Verified 02/05/17 23:14) swelling to the face tazobactam sodium [From Zosyn] Allergy (Verified 02/05/17 23:14) swelling to the face lisinopril Adverse Reaction (Intermediate, Verified 02/05/17 23:14) Itching milk Adverse Reaction (Intermediate, Verified 02/05/17 23:14) Nausea/Vomiting Home medications list reviewed: Yes Home Medications: Metformin HCl [Glucophage] 1,000 mg PO BIDWM 05/10/15 gemfibroziL [Lopid*] 600 mg PO BID 05/10/15 Amlodipine Besylate [Norvasc] 10 mg PO DAILY 02/05/17 Aspirin [Aspirin EC 81 MG] 81 mg PO DAILY 02/05/17 carvediloL [Carvedilol] 12.5 mg PO BID 02/05/17 Glimepiride 1 mg PO BID #60 tablet 02/08/17 Multivit,Calc,Mins/Iron/Folic [One Daily Women's Health Tab] 1 each PO DAILY 02/25/17 Pantoprazole [Protonix Tab] 40 mg PO DAILY #30 tab 02/25/17 - Past Medical/Surgical History Diabetic: Yes -: Diabetes mellitus type 2 -: HTN -: Hyperlipidemia -: Anxiety -: Left oophorectomy -: Psychosocial/ Personal History: The patient is single, she has 1 child. She does not work. - Family History Father -: Heart disease Notes: father of heart attack Mother -: Heart disease, Hypertension, Diabetes Sister -: Hypertension, Diabetes Brother -: Hypertension Notes: brother from aneurysm in 12/2016 - Social History Alcohol use: No CD- Drugs: No Caffeine use: Yes Review of Systems 10-point ROS is otherwise unremarkable General: Unremarkable Eyes: Unremarkable ENT: Other (Slurred speech, mild drooping of the right side of the face) Respiratory: Unremarkable (Drooling well drink yesterday, able to drink today) Cardiovascular: Unremarkable Gastrointestinal: Unremarkable Genitourinary: Unremarkable Musculoskeletal: Unremarkable (Right facial droop) Integumentary: Unremarkable Neurological: Unremarkable Physical Examination - Physical Exam General: Alert, Oriented x3 HEENT: Atraumatic, Other (Slurred speech, drooping of right side of the face, able to drink able to talk) Neck: No LAD Respiratory: Clear to auscultation bilaterally Cardiovascular: No edema, Normal pulses, Regular rate/rhythm, No murmurs Capillary refill: <2 Seconds Gastrointestinal: Normal bowel sounds, Hypoactive, Soft and benign, Non- distended, No ascites, No tenderness, No masses, No rebound, No guarding Musculoskeletal: No swelling, No contractures, No erythema, No tenderness, Other (Able to walk without assistance right-sided face droop) Integumentary: No rashes, No breakdown, No significant lesion, No tenderness/swelling Neurological: Normal gait, Other (Slurred speech) - Studies Laboratory Data (last 24 hrs) 09/03/23 09/03/23 09/03/23 15:07 15:07 15:07 WBC 9.50 Hgb 13.3 Hct 37.9 Plt Count 343 PT 10.0 INR 0.91 APTT 33.8 Sodium 133 L Potassium 3.9 BUN 18 Creatinine 0.77 Glucose 308 H Assessment and Plan - Plan Assessment and plan Assessment Acute ischemic stroke NIH SS score 1 Slurred speech Drooling Right facial droop Hypertension Elevated troponin Diabetes type 2 Hyperlipidemia Plan Acute ischemic stroke NIH SS score 1 Slurred speech Right facial droop Drooling * Patient with came with a complaining of slurred speech since yesterday morning 8:00, associated with facial droop. * CT brain showing suspected nonhemorrhagic acute CVA on the right medial prefrontal gyrus measuring 16 x 9 cm. * Consulted neurologist Dr. Connelly ordered MRA, lipid panel, echo, neuro work- up * Aspirin 325 p.o. x1 given, Plavix 75 mg p.o. given. * Echocardiogram with bubble study ordered * MRA ordered Patient's NIHSS score 1. Hypertension,Elevated troponin * Chronic controlled on amlodipine, and Coreg * Continue home medications * Elevated troponin * Consulted continue lead blender via Dr. Kowalski Diabetes type 2 * Chronic controlled on metformin and glimepiride * Resume home medication Hyperlipidemia * Chronic controlled on statin * Will start atorvastatin 40 mg p.o. at bedtime CODE STATUS Full Diet Cardiac, diabetic Aspiration precaution DVT prophylaxis SCDS - Advance Directives Does patient have a Living Will: No Does patient have a Durable POA for Healthcare: No
[2023-09-03 18:20] LABS: Hematocrit 35.5 % (36.0-45.0); MCV 81.7 fL (80-100); Platelets 329 thou/uL (152-406); RBC Red Blood Cell Count 4.35 M/uL (3.86-4.86)
[2023-09-03 18:21] LABS: Lymphocytes % 21.5 % (15.3-44.8)
[2023-09-03 18:40] LABS: Protime INR 0.85
[2023-09-03] MEDS: DIPYRIDAMOLE/ASPIRIN CAP ER PO SCH (21:00)
[2023-09-03] MEDS ORDERED: gemfibroziL 600 MG TAB PO SCH (21:00)
[2023-09-03] MEDS: NA CHLORIDE 0.9% 1,000 ML IV SCH (22:04)
[2023-09-03] MEDS: ENOXAPARIN 40 MG/0.4 ML SQ SCH (22:10)
[2023-09-03] MEDS: carvediloL 12.5 MG TAB PO SCH (22:10)
[2023-09-03] MEDS: ATORVASTATIN 80 MG TAB PO SCH (22:11)
[2023-09-03 23:19] VITALS: BMI 30.5
[2023-09-04 05:56] LABS: RPR (Rapid Plasma Reagin) NON-REACT (NON-REACT)
[2023-09-04] MEDS: carvediloL 12.5 MG TAB PO SCH ×2 (06:04→17:24)
[2023-09-04] MEDS: INSULIN REGULAR (HUMAN) 100 UNIT/ML SQ SCH ×5 (06:08→21:02)
[2023-09-04 06:33] LABS: Absolute Lymphocytes (CBC) 2.7 K/uL (0.7-4.9); Hematocrit 36.4 % (36.0-45.0); Lymphocytes % 30.9 % (15.3-44.8); MCV 82.6 fL (80-100); MPV 6.9 fL (7.6-11.3); Platelets 333 thou/uL (152-406)
[2023-09-04 07:00] LABS: BUN Blood Urea Nitrogen 21 mg/dL (7-18); Bicarbonate 25 mEq/L (21-32); Glomerular Filtration Rate 111 ml/min (=/>90); Glucose Level 257 mg/dL (74-106); HDL Cholesterol 41 mg/dL (40-60); Magnesium 1.7 mg/dL (1.6-2.4); Potassium 3.8 mEq/L (3.5-5.1); Sodium Level 133 mEq/L (136-145)
[2023-09-04 07:11] LABS: LDL, Direct 66 mg/dL (100-129)
[2023-09-04] MEDS ORDERED: INFLUENZA VACCINE (for 6+ mo) 0.5 ML DOSE IMVAC ONE (08:00)
--- NOTE | 2023-09-04 08:39 | RAD REPORT ---
EXAM DESCRIPTION: MRI - MRA Head Wo Cont - 09/04/2023 8:27 am CLINICAL HISTORY: Acute CVA CVA COMPARISON: Head angio dated 09/03/2023; Brain Wo Cont dated 09/03/2023 FINDINGS: 3D noncontrast [id number] MR angiography of the [place] was performed. No evidence of large vessel occlusion. No aneurysm, flow-limiting stenosis or vascular malformation i s seen. Forward flow seen in codominant vertebral arteries. The visualized dural venous sinuses appear patent. IMPRESSION: No significant flow abnormality of the [place] is identified.
[2023-09-04] MEDS ORDERED: ASPIRIN EC 81 MG TAB PO SCH (09:00)
[2023-09-04] MEDS: DIPYRIDAMOLE/ASPIRIN CAP ER PO SCH ×2 (09:00→19:56)
[2023-09-04] MEDS: ENOXAPARIN 40 MG/0.4 ML SQ SCH (09:24)
[2023-09-04] MEDS: PANTOPRAZOLE 40MG TABLET PO SCH (09:25)
[2023-09-04] MEDS: NA CHLORIDE 0.9% 1,000 ML IV SCH ×2 (09:25→19:56)
[2023-09-04] MEDS: ASPIRIN 81 MG CHEWABLE TABLET PO SCH (09:25)
[2023-09-04] MEDS: AMLODIPINE 10 MG TAB PO SCH (09:25)
[2023-09-04] MEDS: CLOPIDOGREL 75 MG TABLET PO SCH (09:25)
--- NOTE | 2023-09-04 11:21 | EKG ---
Test Date: 2023-09-03 Test Time: 16:03:03 Gambling Floor Supervisor: HB MEASUREMENT RESULTS: Intervals: Rate: 95 WY: 150 QRSD: 72 QT: 348 QTc: 437 Miller: P: 50 WY: 150 QRS: -6 T: 18 INTERPRETIVE STATEMENTS: Normal sinus rhythm Normal ECG Compared to ECG 11/13/2017 23:47:49 Sinus tachycardia no longer present Myocardial infarct finding no longer present Electronically Signed On 09-04-23 11:18:17 CDT by Lamont Isaac
[2023-09-04] MEDS: FENOFIBRATE 160 MG TAB PO SCH (12:00)
--- NOTE | 2023-09-04 13:50 | CON ---
Date of Consultation: 09/04/2023 Reason For Consultation: Elevated troponin. History Of Present Illness: This is a 43-year-old female with a past medical history of hypertension , diabetes, dyslipidemia, acid reflux, presented to the emergency room with slurred speech. Denies h aving any chest pain. She has slurred speech and facial droop, but no chest pain, shortness of breat h, or any cardiac complaints. Troponin was borderline positive, so I was consulted. The patient covarrubias s not have any history of cardiac disease and chest pain free. Past Medical History: As outlined above in the HPI. Medications: Refer to reconciliation sheet for detailed list. Allergies: PENICILLIN, ZOSYN, LISINOPRIL. Family History: No premature coronary artery disease. Social History: Does not smoke or drink. Does not use any drugs. Review of Systems: All systems reviewed and they were negative except what mentioned in HPI. Physical Examination: Vital Signs: Reviewed. Head and Neck: Pupils are equal, reactive to light. Intact eye movements. No JVD. No cervical lym phadenopathy. Neck: Supple. Thyroid is not enlarged. Lungs: Clear to auscultation bilaterally. No rhonchi, rales, or crackles. No accessory muscle use. Heart: Regular rate and rhythm. No extra sounds. Abdomen: Soft, nontender. Bowel sounds positive. No organomegaly. No masses or hernia. No rigidi ty or rebound. Extremities: No edema, clubbing, or cyanosis. Intact pulses. Skin: No rash noted. Neurologic: Alert, awake, oriented x3. No gross focal deficits appreciated. Investigations: Troponin was 86, there was only 1 set checked and BUN 21, creatinine 0.64. Assessment/recommendations: 1.Positive troponin. No chest pain. Repeat another troponin now, elicits goes substantially higher . This is likely demand. Recommend to obtain echocardiogram and stress test can be done as an outpa tient and she is just being managed for acute CVA. 2.Hypertension. Blood pressure is controlled. SR/MODL Voice ID: [id number] Report ID: [id number]
--- NOTE | 2023-09-04 18:58 | P.PN ---
Subjective Date of Service: 09/04/23 Primary Care Provider: Asad Saldivar Chief Complaint: Acute CVA Patient states his slurred speech is better. She passed swallow evaluation and she is tolerating diet. She denies any limb weakness. Physical Examination - Vital Signs Temperature: 98.6 F Blood Pressure: 128/82 Pulse: 99 Respirations: 16 Pulse Ox (%): 98 Assessment And Plan - Plan Physical Exam General: Alert, Oriented x3 Neck: No carotid bruit. Respiratory: Clear to auscultation bilaterally Cardiovascular: No edema, Normal pulses, Regular rate/rhythm, No murmurs Gastrointestinal: Normal bowel sounds, Hypoactive, Soft and benign, Non- distended, No ascites, No tenderness, No masses, No rebound, No guarding Musculoskeletal: No swelling, No contractures, No erythema, No tenderness, Other (Able to walk without assistance right-sided face droop) Integumentary: No rashes, No breakdown, No significant lesion, No tenderness/swelling Neurological: Normal gait, Slurred speech, left facial droop Diagnosis Acute ischemic stroke. Slurred speech Hypertension Elevated troponin Diabetes type 2 Hyperlipidemia Plan Acute ischemic stroke NIH SS score 1 Slurred speech Right facial droop * CT brain showing suspected nonhemorrhagic acute CVA on the right medial prefrontal gyrus measuring 16 x 9 cm. * Confirm by MRI of brain * Dr. Connelly consulted * CTA head and neck/MRA head and neck shows no significant vessel occlusion or stenosis * Aspirin and Plavix * Folic acid * High-dose statin * Echocardiogram with bubble study is pending. Hypertension. * Permissive hypertension. Elevated troponin * Dr. Isaac input appreciated * This is likely secondary to demand ischemia. * Echocardiogram is pending. Diabetes type 2 * Insulin sliding scale. Hyperlipidemia/hypertriglyceridemia * atorvastatin 40 mg p.o. at bedtime * Start Tricor for hypertriglyceridemia. * Advised low-fat low-cholesterol diet. CODE STATUS Full Diet Cardiac, diabetic DVT prophylaxis: Lovenox.
[2023-09-04] MEDS: ATORVASTATIN 80 MG TAB PO SCH (19:56)
[2023-09-05] MEDS: carvediloL 12.5 MG TAB PO SCH (05:30)
[2023-09-05 07:22] LABS: Absolute Lymphocytes (CBC) 1.7 K/uL (0.7-4.9); Hematocrit 33.4 % (36.0-45.0); Lymphocytes % 20.7 % (15.3-44.8); MCV 82.2 fL (80-100); Platelets 290 thou/uL (152-406); RBC Red Blood Cell Count 4.06 M/uL (3.86-4.86)
[2023-09-05 07:37] LABS: Magnesium 1.8 mg/dL (1.6-2.4); Potassium 3.9 mEq/L (3.5-5.1)
[2023-09-05] MEDS: DIPYRIDAMOLE/ASPIRIN CAP ER PO SCH (08:21)
[2023-09-05] MEDS: FENOFIBRATE 160 MG TAB PO SCH (08:21)
[2023-09-05] MEDS: ENOXAPARIN 40 MG/0.4 ML SQ SCH (08:22)
[2023-09-05 08:23] VITALS: BP 131/81; TEMP 97.2
[2023-09-05] MEDS: ASPIRIN 81 MG CHEWABLE TABLET PO SCH (08:23)
[2023-09-05] MEDS: PANTOPRAZOLE 40MG TABLET PO SCH (08:23)
[2023-09-05] MEDS: AMLODIPINE 10 MG TAB PO SCH (08:24)
[2023-09-05] MEDS: INSULIN REGULAR (HUMAN) 100 UNIT/ML SQ SCH (08:24)
[2023-09-05] MEDS: CLOPIDOGREL 75 MG TABLET PO SCH (08:25)
[2023-09-05] MEDS ORDERED: FOLIC ACID 1 MG TABLET PO SCH (09:00)
[2023-09-05 09:40] VITALS: O2SAT 98
--- NOTE | 2023-09-05 10:36 | ECHO ---
HEIGHT: 5 ft 5 in WEIGHT: 158 lb 0.085 oz DATE OF STUDY: 09/04/[address]: Bennett Anders NP 2-DIMENSIONAL: YES M.MODE: YES DOPPLER: NO COLOR FLOW: NO TDS: PORTABLE: YES DEFINITY: BUBBLE STUDY: YES DIAGNOSIS: CEREBRAL VASCULAR ACCIDENT, ELEVATED TROPONIN CARDIAC HISTORY: CATHERIZATION: SURGERY: PROSTHETIC VALVE: PACEMAKER: MEASUREMENTS (cm) DIASTOLIC (NORMALS) SYSTOLIC (NORMALS) IVSd 0.8 (0.6-1.2) LA Diam 3.0 (1.9-4.0) LVEF 66% LVIDd 3.9 (3.5-5.7) LVIDs 2.5 (2.0-3.5) %FS 36% LVPWd 1.0 (0.6-1.2) Ao Diam 2.4 (2.0-3.7) 2 DIMENSIONAL ASSESSMENT: RIGHT ATRIUM: NORMAL LEFT ATRIUM: NORMAL RIGHT VENTRICLE: NORMAL LEFT VENTRICLE: NORMAL TRICUSPID VALVE: NORMAL MITRAL VALVE: NORMAL PULMONIC VALVE: NORMAL AORTIC VALVE: NORMAL PERICARDIAL EFFUSION: NONE AORTIC ROOT: NORMAL LEFT VENTRICULAR WALL MOTION: NORMAL DOPPLER/COLOR FLOW: NORMAL COMMENTS: 1. NORMAL LEFT VENTRICULAR EJECTION FRACTION 60-65% 2. NORMAL WALL MOTION 3. BUBBLE STUDY WAS NEGATIVE FOR INTRA-CARDIAC SHUNT TECHNOLOGIST: NATALIYA CONNOLLY
--- NOTE | 2023-09-05 12:10 | P.DS ---
Admission Date: 09/03/23 Discharge Date: 09/05/23 Primary Care Provider: Asad Saldivar Disposition: ROUTINE DISCHARGE Discharge Condition: FAIR Reason for Admission: Acute CVA Brief History of Present Illness: This is a 43-year-old female with a history of hypertension, diabetes, hyperlipidemia and GERD. Patient presented to the emergency room via ambulatory with the complaints of slurred speech and facial droop. Patient is alert and oriented, no limb weakness. Patient denied history of any similar episodes in the past. ED course vital signs 158/93, pulse 103, respiration 18, pulse ox 100% on room air, heart rate is regular, QRS is normal, [place] interval is normal QRS interval is normal QT interval is at 437msec. Aspirin [address] stroke brain without contrast showed suspected nonhemorrhagic acute CVA on the right medial prefrontal gyrus measuring 16 x 9 cm. Patient hospitalized for further management. Hospital Course: Diagnosis Acute ischemic stroke. Slurred speech Hypertension Elevated troponin Diabetes type 2 Hyperlipidemia Patient admitted to the medical floor and the following medical problems addressed: Acute ischemic stroke. Slurred speech Right facial droop * CT brain showing suspected nonhemorrhagic acute CVA on the right medial prefrontal gyrus measuring 16 x 9 cm. * Confirmed by MRI of brain * Dr. Connelly consulted. * CTA head and neck/MRA head and neck shows no significant vessel occlusion or stenosis * Patient placed on aspirin and Plavix * Folic acid * High-dose statin * Echocardiogram with bubble study-unremarkable, no shunt. Hypertension. * Permissive hypertension. Elevated troponin * Seen by cardiology Dr. Isaac. * This is likely secondary to demand ischemia. * Echocardiogram unremarkable. Diabetes type 2 * Insulin sliding scale. Hyperlipidemia/hypertriglyceridemia * atorvastatin 80 mg p.o. at bedtime * Started Tricor for hypertriglyceridemia. * Advised low-fat low-cholesterol diet. * Vital Signs/Physical Exam: Temp Pulse Resp BP Pulse Ox 97.2 F 88 16 131/81 98 09/05/23 08:00 09/05/23 08:00 09/05/23 08:00 09/05/23 08:00 09/05/23 08:00 General: Alert, In no apparent distress, Oriented x3 HEENT: Mucous membr. moist/pink Neck: JVD not distended Respiratory: Clear to auscultation bilaterally, Normal air movement Cardiovascular: No edema, Regular rate/rhythm, Normal S1 S2 Gastrointestinal: Normal bowel sounds, Soft and benign, Non-distended, No tende rness Musculoskeletal: No swelling Integumentary: No rashes, No cyanosis Neurological: Other (Right facial droop, mildly slurred speech.) Laboratory Data at Discharge: WBC 8.20 thou/uL (4.3-10.9) 09/05/23 06:53 Hgb 11.8 g/dL (12.0-15.0) L 09/05/23 06:53 Hct 33.4 % (36.0-45.0) L 09/05/23 06:53 Plt Count 290 thou/uL (152-406) 09/05/23 06:53 PT 9.3 SECONDS (9.5-12.5) L 09/03/23 18:05 INR 0.85 09/03/23 18:05 APTT 32.6 SECONDS (24.3-36.9) 09/03/23 18:05 Sodium 135 mEq/L (136-145) L 09/05/23 06:53 Potassium 3.9 mEq/L (3.5-5.1) 09/05/23 06:53 BUN 15 mg/dL (7-18) 09/05/23 06:53 Creatinine 0.56 mg/dL (0.55-1.02) 09/05/23 06:53 Glucose 283 mg/dL (74-106) H 09/05/23 06:53 Magnesium 1.8 mg/dL (1.6-2.4) 09/05/23 06:53 Triglycerides 493 mg/dL (<150) H 09/04/23 06:07 Cholesterol 150 mg/dL (<200) 09/04/23 06:07 LDL Cholesterol Direct 66 mg/dL (100-129) L 09/04/23 06:07 HDL Cholesterol 41 mg/dL (40-60) 09/04/23 06:07 Cholesterol/HDL Ratio 3.66 09/04/23 06:07 Home Medications: Metformin HCl [Glucophage] 1,000 mg PO BIDWM 05/10/15 Aspirin [Aspirin EC 81 MG] 81 mg PO DAILY 02/05/17 Atorvastatin Calcium 40 mg PO BEDTIME 09/03/23 Losartan Potassium 50 mg PO DAILY 09/03/23 PARoxetine HCL [Paroxetine HCl] 20 mg PO DAILY 09/03/23 glipiZIDE [Glipizide] 10 mg PO BID 09/03/23 hydroCHLOROthiazide [Hydrochlorothiazide] 25 mg PO DAILY 09/03/23 Amlodipine [Norvasc*] 10 mg PO DAILY #30 tab 09/05/23 Atorvastatin Calcium [Lipitor] 80 mg PO BEDTIME #30 tab 09/05/23 Clopidogrel Bisulfate [Plavix*] 75 mg PO DAILY #30 tab 09/05/23 Fenofibrate [Tricor*] 160 mg PO DAILY #30 tab 09/05/23 Folic Acid 1 mg PO DAILY #30 tab 09/05/23 Metoprolol Tartrate 25 mg PO BID #60 tab 09/05/23 New Medications: Folic Acid 1 mg PO DAILY #30 tab Atorvastatin Calcium [Lipitor] 80 mg PO BEDTIME #30 tab Metoprolol Tartrate 25 mg PO BID #60 tab Amlodipine [Norvasc*] 10 mg PO DAILY #30 tab Clopidogrel Bisulfate [Plavix*] 75 mg PO DAILY #30 tab Fenofibrate [Tricor*] 160 mg PO DAILY #30 tab Followup: Clay Connelly MD [ASSOCIATE-ACTIVE - CAN ADMIT] - (Within 1 month) NONE,NONE [Primary Care Provider] - Time spent managing pt's care (in minutes): 35
[2023-09-06 14:42] LABS: Albumin, (SPE) 3.5 g/dL (3.8-4.8); Alpha-1-Globulins 0.2 g/dL (0.2-0.3); Alpha-2-Globulins 0.9 g/dL (0.5-0.9); Gamma Globulins 0.9 g/dL (0.8-1.7); INTERPRETATION REPORT
[2023-09-07 10:35] LABS: Protein C Antigen 114 % normal (70-140)
[2023-09-10 19:58] LABS: Prothrombin Gene Analysis Test NEGATIVE
== END 2023-09-05 12:15 | disposition home or self-care (01) | DRG 65 ==
LOC: ER 14:24 → ERHOLD 17:23 → 4TH 19:38
PROVIDERS: ADMIT Hospitalist; ATTEND Internal Medicine
DX: I63.9 Cerebral infarction, unspecified (principal); I24.89 Other forms of acute ischemic heart disease; I10 Essential (primary) hypertension; E78.5 Hyperlipidemia, unspecified; E78.1 Pure hyperglyceridemia; E11.9 Type 2 diabetes mellitus without complications; K21.9 Gastro-esophageal reflux disease without esophagitis; R29.701 NIHSS score 1; R47.81 Slurred speech; R29.810 Facial weakness; Z56.0 Unemployment, unspecified; Z88.8 Allergy status to other drugs, medicaments and biological substances; Z88.0 Allergy status to penicillin; Z79.82 Long term (current) use of aspirin; Z79.84 Long term (current) use of oral hypoglycemic drugs; Z79.02 Long term (current) use of antithrombotics/antiplatelets; Z79.899 Other long term (current) drug therapy
CPT/HCPCS: 36415; 70450; 70496; 70498; 70544; 70551; 71045; 80048; 80061; 81240; 81241; 82306; 82607; 82947; 83090; 83735; 84165; 84443; 84484; 85025; 85300; 85302; 85305; 85306; 85610; 85730; 86021; 86147; 86592; 92610; 93005; 93307; 94760; 97116; 97161; 99285; J1650; J1815; J7030; Q9967